=== PATIENT | female | born 1965 | race African-American/Black ===

== ENCOUNTER 2019-12-11 18:52 | Emergency (ER) | payer SELFPAY ==
[~2019-12-11] VITALS: Ht 165.1 cm; Wt 66.0 kg
[~2019-12-11 18:52] MED LIST: FOLIC ACID; STOOL SOFTENER; lisinopril
[2019-12-11] MEDS ORDERED: ACETAMINOPHEN 325MG TABLET PO STA (21:20)
[2019-12-11 22:10] LABS: BASOPHILS % 0.9 % (0.0-2.0); EOSINOPHILS % 0.1 % (0.0-5.0); HEMOGLOBIN. 13.8 g/dL (12.0-16.0); LYMPHOCYTES % 32.2 % (20.0-50.0); MEAN CORPUSCULAR HEMOGLOBIN 29.9 pg (28.0-32.0); MEAN CORPUSCULAR VOLUME 88.9 fL (81.0-99.0); MEAN PLATELET VOLUME 7.6 fl (7.4-10.4); MONOCYTES % 7.4 % (2.0-8.0); NEUTROPHILS % 59.4 % (40.0-76.0); PLATELET 317 x1000/uL (130-400); RED BLOOD CELL COUNT 4.62 mill/uL (4.2-5.4); RED CELL DISTRIBUTION WIDTH 13.9 % (11.6-14.6)
[2019-12-11 22:14] LABS: CLARITY URINE CLOUDY (CLEAR); COLOR URINE YELLOW (YELLOW); KETONES URINE NEGATIVE (NEGATIVE); LEUKOCYTE ESTERASE URINE 3+ (NEGATIVE); NITRITE URINE NEGATIVE (NEGATIVE); OCCULT BLOOD URINE NEGATIVE (NEGATIVE); PH URINE >=9.0 (4.5-8.0); PROTEIN URINE 2+ (NEGATIVE); SPECIFIC GRAVITY URINE 1.021 (1.005-1.030); UROBILINOGEN URINE 0.2 E.U./dL (0.2-1.0)
[2019-12-11 22:15] LABS: CHLORIDE 96 mEq/L (98-107)
[2019-12-11] MEDS ORDERED: METOPROLOL TARTRATE 50MG TABLET PO ONE (22:45)
[2019-12-11] MEDS ORDERED: ONDANSETRON HCL 4MG/2ML INJ IV ONE (22:45)
[2019-12-11] MEDS ORDERED: MULTIVITAMINS,THER W-MINERALS TABLET PO SCH ×2 (22:45→23:00)
[2019-12-11] MEDS ORDERED: LORAZEPAM 0.5MG TABLET PO ONE (22:45)
[2019-12-11] MEDS ORDERED: CEFTRIAXONE 1 G PREMIX 50 ML IV NR (22:45)
[2019-12-11 23:46] LABS: ETHANOL BLOOD < 10 mg/dL
[2019-12-11 23:49] LABS: BETA HYDROXYBUTYRATE 0.2 mMol/L (0.0-0.3)
[2019-12-12 00:33] VITALS: BP 149/85
== END 2019-12-12 00:38 | disposition home or self-care (01) ==
LOC: ER 18:52
DX: F10.188 Alcohol abuse with other alcohol-induced disorder (principal); Y90.0 Blood alcohol level of less than 20 mg/100 ml; N39.0 Urinary tract infection, site not specified; I16.0 Hypertensive urgency
CPT/HCPCS: 36415; 80053; 80320; 81003; 82010; 82962; 83690; 85025; 87086; 96365; 96375; 99284; J0696; J2405; Z7610; G0480

== ENCOUNTER 2021-02-01 15:27 | Emergency (ER) | payer MEDICAID ==
[~2021-02-01] VITALS: Ht 167.6 cm; Wt 85.0 kg
[2021-02-01] MEDS ORDERED: IBUPROFEN 600MG TABLET PO ONE (16:45)
[2021-02-01] MEDS ORDERED: ACETAMINOPHEN WITH CODEINE 300/30MG TABLET PO ONE (17:15)
[2021-02-01] MEDS ORDERED: T3 PO (17:15)
[2021-02-01] MEDS ORDERED: IBUP-2029 MT (17:16)
[2021-02-01 17:38] VITALS: BP 128/77
== END 2021-02-01 17:39 | disposition home or self-care (01) ==
LOC: ER 15:27
DX: S52.501A Unspecified fracture of the lower end of right radius, initial encounter for closed fracture (principal); I10 Essential (primary) hypertension; Z90.710 Acquired absence of both cervix and uterus; Y08.89XA Assault by other specified means, initial encounter; Y93.89 Activity, other specified; Y92.89 Other specified places as the place of occurrence of the external cause; Y99.8 Other external cause status
CPT/HCPCS: 29125; 73110; 99283

== ENCOUNTER 2022-03-12 06:37 | Emergency (ER) | payer MEDICAID ==
[~2022-03-12] VITALS: Ht 165.1 cm; Wt 81.8 kg
[~2022-03-12 06:37] MED LIST changes: +IBUP-2029 MT; +T3 PO
[2022-03-12 06:42] VITALS: BP 149/99
[2022-03-12 07:57] LABS: EOSINOPHILS % 2.8 % (0.0-5.0); HEMATOCRIT. 35.2 % (36.0-48.0); HEMOGLOBIN. 11.8 g/dL (12.0-16.0); LYMPHOCYTES % 33.9 % (20.0-50.0); MEAN CORPUSCULAR VOLUME 101.1 fL (81.0-99.0); MEAN PLATELET VOLUME 8.5 fl (7.4-10.4); MONOCYTES % 9.2 % (2.0-8.0); NEUTROPHILS % 53.1 % (40.0-76.0); PLATELET 301 x1000/uL (130-400); RED BLOOD CELL COUNT 3.48 mill/uL (4.2-5.4); RED CELL DISTRIBUTION WIDTH 16.4 % (11.6-14.6)
[2022-03-12 07:59] LABS: INR 1.1; PROTHROMBIN TIME 11.4 sec (9.6-11.0)
[2022-03-12 08:10] LABS: CHLORIDE 104 mEq/L (98-107)
[2022-03-12 08:49] LABS: CLARITY URINE CLEAR (CLEAR); COLOR URINE YELLOW (YELLOW); KETONES URINE NEGATIVE (NEGATIVE); LEUKOCYTE ESTERASE URINE 2+ (NEGATIVE); NITRITE URINE NEGATIVE (NEGATIVE); OCCULT BLOOD URINE NEGATIVE (NEGATIVE); PH URINE 5.5 (4.5-8.0); PROTEIN URINE NEGATIVE (NEGATIVE)
[2022-03-12] MEDS ORDERED: TOPUD PO (09:28)
[2022-03-12] MEDS ORDERED: NITR100C PO (09:28)
== END 2022-03-12 09:48 | disposition home or self-care (01) ==
LOC: ER 06:52
DX: R60.0 Localized edema (principal); N39.0 Urinary tract infection, site not specified; M25.572 Pain in left ankle and joints of left foot; M25.571 Pain in right ankle and joints of right foot; I10 Essential (primary) hypertension
CPT/HCPCS: 36415; 71045; 80053; 81003; 85025; 93970; 99285

== ENCOUNTER 2022-07-26 15:32 | Emergency (ER) | payer MEDICAID, OTHER ==
[~2022-07-26] VITALS: Ht 162.6 cm; Wt 80.0 kg
[~2022-07-26 15:32] MED LIST changes: +NITR100C PO; +TOPUD PO
[2022-07-26 15:38] VITALS: BP 164/93
[2022-07-26] MEDS ORDERED: SULF1TAB48 PO (18:58)
[2022-07-26] MEDS ORDERED: CLOT30CR38 TP (18:58)
[2022-07-26] MEDS ORDERED: FLUC150T46 PO (18:58)
== END 2022-07-26 19:48 | disposition home or self-care (01) ==
LOC: ER 15:32
DX: L30.4 Erythema intertrigo (principal); L03.311 Cellulitis of abdominal wall; L03.317 Cellulitis of buttock; I10 Essential (primary) hypertension
CPT/HCPCS: 71045; 82962; 99283

== ENCOUNTER 2022-08-05 05:58 | Emergency (ER) | payer MEDICAID ==
[~2022-08-05] VITALS: Ht 165.1 cm; Wt 79.0 kg
[~2022-08-05 05:58] MED LIST changes: +CLOT30CR38 TP; +FLUC150T46 PO; +SULF1TAB48 PO
[2022-08-05] MEDS ORDERED: TERB30CR8 TP (09:14)
[2022-08-05] MEDS ORDERED: HYDR453.3 TP (09:14)
[2022-08-05 09:40] VITALS: BP 125/92
== END 2022-08-05 10:28 | disposition home or self-care (01) ==
LOC: ER 05:58
DX: L30.4 Erythema intertrigo (principal); I10 Essential (primary) hypertension; Z90.710 Acquired absence of both cervix and uterus; Z79.899 Other long term (current) drug therapy
CPT/HCPCS: 99282

== ENCOUNTER 2022-09-21 15:38 | Emergency (ER) | payer MEDICAID, OTHER ==
[~2022-09-21] VITALS: Ht 162.6 cm; Wt 80.0 kg
[~2022-09-21 15:38] MED LIST changes: +HYDR453.3 TP; +TERB30CR8 TP
[2022-09-21 15:48] VITALS: BP 121/81
[2022-09-21] MEDS ORDERED: COLCHICINE 0.6MG TABLET PO ONE (18:45)
[2022-09-21] MEDS ORDERED: INDOMETHACIN 25MG CAPSULE PO ONE (18:45)
[2022-09-21] MEDS ORDERED: INDO50CA98 MT (19:20)
[2022-09-21] MEDS ORDERED: COLC0.6C3 MT ×3 (19:20→19:23)
== END 2022-09-21 19:50 | disposition home or self-care (01) ==
LOC: ER 15:38
DX: M10.9 Gout, unspecified (principal); I10 Essential (primary) hypertension; Z79.899 Other long term (current) drug therapy; Z98.890 Other specified postprocedural states
CPT/HCPCS: 99283

== ENCOUNTER 2022-10-01 15:07 | Emergency (ER) | payer OTHER ==
[~2022-10-01] VITALS: Ht 170.2 cm; Wt 76.0 kg
[~2022-10-01 15:07] MED LIST changes: +COLC0.6C3 MT; +INDO50CA98 MT
[2022-10-01] MEDS ORDERED: ONDANSETRON 4MG/5ML UDC PO ONE (17:00)
[2022-10-01] MEDS ORDERED: MAGNESIUM/ALUMINUM HYDROXIDE/SIMETHICONE 30ML UDC PO ONE (17:00)
[2022-10-01 17:41] LABS: BASOPHILS % 0.5 % (0.0-2.0); EOSINOPHILS % 0.6 % (0.0-5.0); HEMATOCRIT. 39.1 % (36.0-48.0); HEMOGLOBIN. 13.3 g/dL (12.0-16.0); LYMPHOCYTES % 13.8 % (20.0-50.0); MEAN CORPUSCULAR VOLUME 94.2 fL (81.0-99.0); MONOCYTES % 2.3 % (2.0-8.0); NEUTROPHILS % 82.8 % (40.0-76.0); PLATELET 378 x1000/uL (130-400); RED BLOOD CELL COUNT 4.15 mill/uL (4.2-5.4); RED CELL DISTRIBUTION WIDTH 13.2 % (11.6-14.6)
[2022-10-01 17:45] LABS: CHLORIDE 100 mEq/L (98-107)
[2022-10-01] MEDS ORDERED: MORPHINE SULFATE 4 MG/ML CPJ (NOT FOR IM USE) IV STA (18:25)
[2022-10-01] MEDS ORDERED: ONDANSETRON HCL 4MG/2ML INJ IV STA (18:25)
[2022-10-01] MEDS ORDERED: SODIUM CHLORIDE 0.9% 1,000 ML IV ONE (18:30)
[2022-10-01] MEDS ORDERED: MORPHINE SULFATE 4 MG/ML CPJ (NOT FOR IM USE) IV NR (21:00)
[2022-10-01] MEDS ORDERED: ONDANSETRON HCL 4MG/2ML INJ IV NR (21:00)
[2022-10-02 00:32] VITALS: BP 142/85
== END 2022-10-02 01:07 | disposition short-term general hospital (02) ==
LOC: ER 15:07 → CANBEDREQ 10-02 07:30
DX: K85.90 Acute pancreatitis without necrosis or infection, unspecified (principal); R11.10 Vomiting, unspecified; I10 Essential (primary) hypertension; Z90.710 Acquired absence of both cervix and uterus; Z79.899 Other long term (current) drug therapy; Z20.822 Contact with and (suspected) exposure to COVID-19
CPT/HCPCS: 36415; 71045; 74176; 76700; 80053; 83690; 83735; 85025; 87426; 93005; 96361; 96374; 96375; 99285; C9803; J2270; J2405; J7030

== ENCOUNTER 2023-05-28 12:58 | Emergency (ER) | payer MEDICAID, OTHER ==
[~2023-05-28] VITALS: Ht 165.1 cm; Wt 77.0 kg
[2023-05-28 13:20] VITALS: BP 192/109; PULSE 96; RESP 16; TEMP 98.3; O2SAT 99
[2023-05-28] MEDS ORDERED: TETANUS, DIPHTHERIA, PERTUSSIS VAC/PF 0.5ML (>10YR OLD) IM ONE (16:15)
[2023-05-28] MEDS ORDERED: BO1 TP (16:15)
[2023-05-28] MEDS ORDERED: AMOXICILLIN/POTASSIUM CLAVULANATE 875/125MG TAB PO ONE (16:15)
[2023-05-28] MEDS ORDERED: AMOX1TAB16 MT (16:15)
== END 2023-05-28 16:50 | disposition home or self-care (01) ==
LOC: ER 12:58
DX: S61.451A Open bite of right hand, initial encounter (principal); W54.0XXA Bitten by dog, initial encounter; Y93.89 Activity, other specified; Y92.89 Other specified places as the place of occurrence of the external cause; Y99.8 Other external cause status
CPT/HCPCS: 90471; 90715; 99283

== ENCOUNTER 2023-09-04 09:41 | Emergency (ER) | payer MEDICAID, OTHER ==
[~2023-09-04] VITALS: Ht 162.6 cm; Wt 77.1 kg
[~2023-09-04 09:41] MED LIST changes: +AMOX1TAB16 MT; +BO1 TP
[2023-09-04 09:50] VITALS: TEMP 98.2; O2SAT 99
[2023-09-04] MEDS ORDERED: TOPUD MT (11:42)
[2023-09-04] MEDS ORDERED: LIDO700A15 TP (11:42)
[2023-09-04 12:31] VITALS: BP 130/89; PULSE 84; RESP 18
== END 2023-09-04 12:31 | disposition home or self-care (01) ==
LOC: ER 09:41
DX: S20.212A Contusion of left front wall of thorax, initial encounter (principal); M70.22 Olecranon bursitis, left elbow; Z79.899 Other long term (current) drug therapy; W18.30XA Fall on same level, unspecified, initial encounter; Y93.89 Activity, other specified; Y92.89 Other specified places as the place of occurrence of the external cause; Y99.8 Other external cause status
CPT/HCPCS: 71045; 73030; 99284

== ENCOUNTER 2024-02-18 09:11 | Emergency (ER) | payer OTHER ==
[~2024-02-18] VITALS: Ht 162.6 cm; Wt 77.1 kg
[~2024-02-18 09:11] MED LIST changes: +LIDO700A15 TP; +TOPUD MT
[2024-02-18 09:19] VITALS: O2SAT 100
[2024-02-18 11:16] VITALS: BP 110/63; PULSE 70; RESP 16; TEMP 98.2
== END 2024-02-18 12:19 | disposition home or self-care (01) ==
LOC: ER 09:11
DX: S62.635A Displaced fracture of distal phalanx of left ring finger, initial encounter for closed fracture (principal); I10 Essential (primary) hypertension; Z90.49 Acquired absence of other specified parts of digestive tract; X58.XXXA Exposure to other specified factors, initial encounter; Y93.89 Activity, other specified; Y92.89 Other specified places as the place of occurrence of the external cause; Y99.8 Other external cause status
CPT/HCPCS: 10060; 73140; 99284